=== PATIENT | female | born 1945 | race Caucasian/White ===

== ENCOUNTER → 2017-06-02 | Outpatient (CLI) | payer MEDICARE ==
--- NOTE | 2017-06-02 13:44 | US ---
EXAMINATION TYPE: US venous doppler duplex LE RT DATE OF EXAM: 06/02/2017 1:34 PM COMPARISON: NONE CLINICAL HISTORY: I82.431 EMBOLISM AND THROMBOSIS. SIDE PERFORMED: right TECHNIQUE: The lower extremity deep venous system is examined utilizing real time linear array sonog susan with graded compression, doppler sonography and color-flow sonography. VESSELS IMAGED: External Iliac Vein (EIV) Common Femoral Vein Deep Femoral Vein Greater Saphenous Vein * Femoral Vein Popliteal Vein Small Saphenous Vein * Proximal Calf Veins (* superficial vessels) rt PTV also imaged Right Leg: Negative for DVT IMPRESSION: 1. Right lower extremity negative for deep venous thrombosis.
== END | disposition home or self-care (01) ==
LOC: RADUSWWP 12:53
PROVIDERS: ATTEND Internal Medicine Interventional Cardiology
DX: I82.431 Acute embolism and thrombosis of right popliteal vein (principal)

== ENCOUNTER → 2017-09-09 | Outpatient (CLI) | payer MEDICARE ==
--- NOTE | 2017-09-09 10:30 | US ---
EXAMINATION TYPE: US venous doppler duplex LE RT DATE OF EXAM: 09/09/2017 10:20 AM COMPARISON: US CLINICAL HISTORY: Rt Leg Deep Vein Thrombosis I82.401. SIDE PERFORMED: Right TECHNIQUE: The lower extremity deep venous system is examined utilizing real time linear array sonog susan with graded compression, doppler sonography and color-flow sonography. VESSELS IMAGED: External Iliac Vein (EIV) Common Femoral Vein Deep Femoral Vein Greater Saphenous Vein * Femoral Vein Popliteal Vein Proximal Calf Veins (* superficial vessels) Grayscale, color doppler, spectral doppler imaging performed of the deep veins of the lower extremity . There is normal flow, compressibility, vascular waveforms. IMPRESSION: Right Leg: Negative for DVT
== END | disposition home or self-care (01) ==
LOC: RADUSWWP 09:57
PROVIDERS: ATTEND Internal Medicine Geriatric Medicine
DX: I82.401 Acute embolism and thrombosis of unspecified deep veins of right lower extremity (principal)

== ENCOUNTER → 2019-02-16 | Outpatient (CLI) | payer MEDICARE ==
--- NOTE | 2019-02-19 14:47 | MM ---
Reason for exam: screening (asymptomatic). Last mammogram was performed 2 years and 9 months ago. History: Patient is postmenopausal. Reductions of both breasts, January 07, 2006. Took hormonal contraceptives for 3 years beginning at age 22. Took estrogen for 10 years beginning at age 46. Took progesterone for 10 years beginning at age 46. Physical Findings: A clinical breast exam by your physician is recommended on an annual basis and results should be correlated with mammographic findings. MG 3D Screening Mammo W/Cad Bilateral CC and MLO view(s) were taken. Prior study comparison: May 14, 2016, bilateral MG 3d screening mammo w/cad. July 26, 2014, bilateral MG diagnostic mammo w CAD MADDI. Finding: There are typically benign course calcifications in the right breast. No significant changes in finding since May 14, 2016 and July 26, 2014. ASSESSMENT: Benign, BI-RAD 2 RECOMMENDATION: Routine screening mammogram of both breasts in 1 year.
== END | disposition home or self-care (01) ==
LOC: RADMAMWWP 15:44
PROVIDERS: ATTEND Internal Medicine Geriatric Medicine
DX: Z12.31 Encounter for screening mammogram for malignant neoplasm of breast (principal)
CPT/HCPCS: 77063; 77067

== ENCOUNTER → 2020-02-27 | Outpatient (CLI) | payer MEDICARE ==
--- NOTE | 2020-02-29 10:22 | MM ---
Reason for exam: screening (asymptomatic). Last mammogram was performed 1 year ago. History: Patient is postmenopausal. Reductions of both breasts, January 07, 2006. Took hormonal contraceptives for 3 years beginning at age 22. Took estrogen for 10 years beginning at age 46. Took progesterone for 10 years beginning at age 46. Physical Findings: A clinical breast exam by your physician is recommended on an annual basis and results should be correlated with mammographic findings. MG 3D Screening Mammo W/Cad Bilateral CC, MLO, and XCCL view(s) were taken. Prior study comparison: February 16, 2019, bilateral MG 3d screening mammo w/cad. May 14, 2016, bilateral MG 3d screening mammo w/cad. Finding: There are typically benign coarse calcifications in the right breast. No significant changes in finding since February 16, 2019 and May 14, 2016. ASSESSMENT: Benign, BI-RAD 2 RECOMMENDATION: Routine screening mammogram of both breasts in 1 year.
== END | disposition home or self-care (01) ==
LOC: RADMAMWWP 15:57
PROVIDERS: ATTEND Internal Medicine Geriatric Medicine
DX: Z12.31 Encounter for screening mammogram for malignant neoplasm of breast (principal)
CPT/HCPCS: 77063; 77067

== ENCOUNTER → 2021-05-27 | Outpatient (CLI) | payer MEDICARE ==
--- NOTE | 2021-06-01 12:02 | MM ---
Reason for exam: screening (asymptomatic). Last mammogram was performed 1 year and 3 months ago. History: Patient is postmenopausal. Reductions of both breasts, January 07, 2006. Took hormonal contraceptives for 3 years beginning at age 22. Took estrogen for 10 years beginning at age 46. Took progesterone for 10 years beginning at age 46. Physical Findings: A clinical breast exam by your physician is recommended on an annual basis and results should be correlated with mammographic findings. MG 3D Screening Mammo W/Cad Bilateral CC and MLO view(s) were taken. Prior study comparison: February 27, 2020, bilateral MG 3d screening mammo w/cad. February 16, 2019, bilateral MG 3d screening mammo w/cad. There are scattered fibroglandular densities. There is chronic nodularity in the right breast. Generator device over the left pectoralis. Stable fat necrosis calcifications anterior right breast. No significant changes when compared with prior studies. ASSESSMENT: Benign, BI-RAD 2 RECOMMENDATION: Routine screening mammogram of both breasts in 1 year.
== END | disposition home or self-care (01) ==
LOC: RADMAMWWP 08:06
PROVIDERS: ATTEND Internal Medicine Geriatric Medicine
DX: Z12.31 Encounter for screening mammogram for malignant neoplasm of breast (principal); Z78.0 Asymptomatic menopausal state
CPT/HCPCS: 77063; 77067

== ENCOUNTER → 2022-02-11 | Outpatient (CLI) | payer MEDICARE ==
--- NOTE | 2022-02-11 09:13 | US ---
EXAMINATION TYPE: US abdomen complete DATE OF EXAM: 02/11/2022 COMPARISON: CT abdomen and pelvis November 03, 2014 CLINICAL HISTORY: N20.0 Kidney stone. Right flank pain TECHNIQUE: Multiple sonographic images of the abdomen are obtained. FINDINGS: EXAM MEASUREMENTS: Liver Length: 13.0 cm Gallbladder Wall: Surgically absent CBD: 0.68 cm Spleen: 9.2 cm Right Kidney: 10.0 x 4.2 x 5.7 cm Left Kidney: 10.0 x 4.5 x 5.5 cm Pancreas: wnl Liver: Increased attenuation Gallbladder: Surgically absent Evidence for sonographic Santana's sign: No CBD: wnl Spleen: wnl Right Kidney: wnl Left Kidney: wnl Upper IVC: wnl Abd Aorta: Slight atherosclerotic changes Heterogeneous hyperechoic appearance of liver correlates with fatty infiltrative hepatocellular disea se on 2015 CT. Evaluation for focal masses suboptimal due to the heterogeneity. Gallbladder redemonst rated surgically absent. IMPRESSION: No definitive renal stones or hydronephrosis seen bilaterally. No acute findings are evid ent.
== END | disposition home or self-care (01) ==
LOC: RADUSWWP 08:12
PROVIDERS: ATTEND Internal Medicine Geriatric Medicine
DX: N20.0 Calculus of kidney (principal)
CPT/HCPCS: 76700

== ENCOUNTER 2022-05-10 15:44 | Day surgery (SDC) | payer MEDICARE ==
[2022-05-07 09:22] VITALS: BMI 33.7
[~2022-05-10 15:44] MED LIST: LACTATED RINGERS 1,000 ML IV SCH; SODIUM CHLORIDE 0.9% 1,000 ML IV SCH; ceFAZolin 1 GM in SODIUM CHLORIDE 0.9% IRRIG BTL 250 ML IRRIGATION PRN
[2022-05-10 16:08] LABS: Glucose,Whole Blood 85 mg/dL (70-110)
[2022-05-10] MEDS ORDERED: HYDROmorphone (PF) 1 MG/ML ONE (17:29)
[2022-05-10] MEDS ORDERED: PROPOFOL 10 MG/ML 20 ML VIAL IV ONE (17:29)
[2022-05-10] MEDS ORDERED: MIDAZOLAM 2 MG/2 ML VIAL ONE (17:29)
[2022-05-10] MEDS ORDERED: fentaNYL (PF) 50 MCG/ML 2 ML AMP ONE (17:29)
[2022-05-10] MEDS ORDERED: KETOROLAC 15 MG/ML 1 ML VIAL ONE (17:29)
[2022-05-10] MEDS ORDERED: IOPAMIDOL-370 50ML BTL INJ ONE ×2 (18:03)
[2022-05-10] MEDS ORDERED: LIDOCAINE 1% INJ 10MG/ML (30 ML VIAL-PF) SQ ONE (18:24)
[2022-05-10] MEDS: VANCOMYCIN 1,000 MG in SODIUM CHLORIDE 0.9% 250 ML IVPB STA ×2 (18:30→18:35)
[2022-05-10] MEDS ORDERED: ACETAMINOPHEN TAB 325 MG TAB PO PRN (20:02)
--- NOTE | 2022-05-10 20:27 | P.EPPROC ---
- EP Procedure Note Electrophysiology Procedure Note: Diagnosis Bradycardia, secondary to complete heart block Status post dual-chamber pacemaker which is at [facility] Reduced LV systolic function ejection fraction 45% with RV pacing 1 run of ventricular tachycardia, cycle length of about 430 ms Procedure Upgrade to a biventricular pacemaker/conduction system pacing with left bundle pacing, selective Details Patient was brought to the EP lab in a fasting state. Written informed consent was obtained prior to the procedure. Conscious sedation provided by anesthesia team IV antibiotics including vancomycin administered. Left upper extremity venogram performed. 50 mL IV dye injected Patent left subclavian and axillary venous system Local anesthesia administered. A 4 cm incision made in the pectoral area. Subfascial pocket made. Partial capsulectomy performed. Chronic leads freed from the capsule tissue Venous access obtained at the level of the second rib, axillary vein Venous sheath placed. Leads placed in the right heart Atrial lead position the right atrial appendage. This is a chronic lead [employer] tendril 1688 TC, 46 cm in length and serial number [id number] Pacing threshold 0.75 V at 0.5 ms, P waves 3.6 mV and pacing. 390 ohms RV lead position in the RV apex. This is a chronically positioned in the low RV septum, [employer] tendril SDX, 1688 TC, 58 cm in length and serial number [id number] Pacing threshold 0.5 V at 0.5 ms, complete heart block, pacing impedance 780 ohms Conduction system pacing performed. His bundle and left bundle mapped. Left bundle lead placed and screwed into the left bundle with a [employer] model #[id number] Right bundle branch block pattern with a QRS of less than 140 ms, selective left bundle pacing Excellent thresholds of less than 0.25 V at 1 ms and pacing impedance of about 590 ohms in the unipolar board Even in the bipolar mode right bundle branch block pattern was noted. Leads secured to the muscle and connected to the new generator Biventricular pacemaker device connected to the leads and placed in the subfascial pocket Patient tolerated the procedure well without acute complications Device programmed to DDD mode, AV delay 200 ms 60-130 bpm Left bundle pacing 80 ms before RV pacing
--- NOTE | 2022-05-10 20:59 | XR ---
EXAMINATION TYPE: XR chest 1V portable DATE OF EXAM: 05/10/2022 8:54 PM COMPARISON: Chest radiographs from 11/03/2014 TECHNIQUE: XR chest 1V portable Portable AP radiograph of the chest. CLINICAL INDICATION:Female, 77 years old with history of Lead placement check; FINDINGS: Lungs/Pleura: There is no evidence of pleural effusion, focal consolidation, or pneumothorax. Pulmonary vascularity: Unremarkable. Heart/mediastinum: Cardiomediastinal silhouette is prominent in size. Three lead cardiac conduction d evice overlying the left hemithorax with lead tips projecting over the right ventricle, right atrium and coronary sinus. Musculoskeletal: No acute osseous pathology. IMPRESSION: 1. Cardiac conduction leads appear in appropriate position. 2. No acute cardiopulmonary disease/process.
[2022-05-10] MEDS ORDERED: MONTELUKAST 10 MG TAB PO SCH (21:00)
[2022-05-10] MEDS: METOPROLOL SUCCINATE (ER) 100 MG TAB.ER.24H PO SCH (22:21)
[2022-05-11 03:46] VITALS: PULSE 60; RESP 18
[2022-05-11 05:36] LABS: Basophils % (A) 0 %; Eosinophils # (A) 0.1 k/uL (0-0.7); Eosinophils % (A) 1 %; HCT 33.3 % (34.0-46.0); HGB 11.1 gm/dL (11.4-16.0); Lymphocytes # (A) 2.1 k/uL (1.0-4.8); Lymphocytes % (A) 32 %; MCH 30.1 pg (25.0-35.0); MCHC 33.3 g/dL (31.0-37.0); MCV 90.5 fL (80.0-100.0); Mean Platelet Volume 8.6; Monocytes # (A) 0.4 k/uL (0-1.0); Monocytes % (A) 6 %; Neutrophils % (A) 60 %; Platelet Count 240 k/uL (150-450); RBC 3.68 m/uL (3.80-5.40); RDW 13.6 % (11.5-15.5); WBC 6.7 k/uL (3.8-10.6)
[2022-05-11] MEDS ORDERED: LEVOTHYROXINE 25 MCG TAB PO SCH (06:30)
[2022-05-11 06:41] VITALS: BP 127/67; TEMP 97.8
[2022-05-11] MEDS ORDERED: LOSARTAN 50 MG TAB PO SCH (09:00)
[2022-05-11 09:34] LABS: ALT 17 U/L (8-44); AST 15 U/L (13-35); African American GFR (CKD) 103.3 (60.0-200.0); Albumin 3.7 g/dL (3.8-4.9); Albumin/Globulin Ratio 2.18 (1.60-3.17); Alkaline Phosphatase 49 U/L (41-126); BUN/Creat Ratio 18.67 Ratio (12.00-20.00); Blood Urea Nitrogen 11.2 mg/dL (9.0-27.0); Calcium 8.8 mg/dL (8.7-10.3); Carbon Dioxide 21.7 mmol/L (20.0-27.5); Chloride 104 mmol/L (96-109); Chol/HDL Ratio 5.59 Ratio; Globulin 1.7 g/dL (1.6-3.3); Glucose 128 mg/dL (70-110); LDL Cholesterol,Calculated 138.8 mg/dL (0.0-131.0); Non-African American GFR(CKD) 89.2 (60.0-200.0); Potassium 4.1 mmol/L (3.5-5.5); Sodium 138 mmol/L (135-145); Total Protein 5.4 g/dL (6.2-8.2)
[2022-05-11] MEDS: METOPROLOL SUCCINATE (ER) 100 MG TAB.ER.24H PO SCH (10:41)
--- NOTE | 2022-05-11 17:07 | P.DS ---
Providers Attending physician: Kristian Morfin Primary care physician: [facility] Course: Patient is doing well. She is resting comfortably in bed. No dizziness no lightheadedness upon going to the bathroom Vitals stable blood pressure 144/60 811/61 Pulse rate in the 60s afebrile Breath sounds are clear no rhonchi no crackles Heart sounds S1 and S2 are normal Twelve-lead EKG shows evidence of left bundle pacing, right bundle branch block pattern Pacemaker interrogation is within normal limits excellent thresholds of the left bundle lead of 0.5 V at 0.5 ms Hemoglobin 11.1 Electrolytes normal Renal function normal Liver function normal LDL 139 HDL 35 TSH normal at 0.8 Impression Complete heart block status post dual-chamber pacemaker implantation several years back Device at [facility] Patient has developed cardiomyopathy ejection fraction 40-45%, she is percent of the right ventricle She underwent upgrade to a biventricular pacemaker with left bundle pacing Excellent function of left bundle pacing lead Episode of ventricular tachycardia few days back Elevated LDL with low HDL Normal TSH Normal electrolytes Plan Reduce losartan to 50 mg by mouth daily Increase metoprolol to 100 mg by mouth daily Device instructions explained Follow-up in the device clinic the week Follow with Dr. Reyes regarding management of ventricular tachycardia Consider statins Follow-up in a week in the office Patient Condition at Discharge: Stable Plan - Discharge Summary Discharge Rx Participant: No New Discharge Prescriptions: New Losartan [Cozaar] 50 mg PO DAILY #90 tab Metoprolol Succinate (ER) [Toprol XL] 100 mg PO DAILY #90 tab Discontinued Losartan [Cozaar] 100 mg PO DAILY Metoprolol Tartrate [Lopressor] 25 mg PO BID No Action Montelukast [Singulair] 10 mg PO HS Levothyroxine Sodium [Levoxyl] 0.5 tab PO DAILY Discharge Medication List Montelukast [Singulair] 10 mg PO HS 11/03/14 [History] Levothyroxine Sodium [Levoxyl] 0.5 tab PO DAILY 05/07/22 [History] Losartan [Cozaar] 50 mg PO DAILY #90 tab 05/10/22 [Rx] Metoprolol Succinate (ER) [Toprol XL] 100 mg PO DAILY #90 tab 05/10/22 [Rx] Follow up Appointment(s)/Referral(s): Lina Reyes MD [STAFF PHYSICIAN] - 1 Week (office will call patient with appointment for the device clinic ) Patient Instructions/Handouts: Pacemaker (DC) Activity/Diet/Wound Care/Special Instructions: PATIENT EDUCATION MATERIAL Instructions following a heart rhythm device implant. 1. Keep dressing DRY for 5 DAYS. You may cover the area with Saran or Cling Wrap, prior to a shower. 2. The dressing will be removed in the Device Clinic at [facility]. Absorbable sutures were used to close the wound. 3. Avoid raising the left arm above the shoulder level. 4 week restriction 4. Avoid arm movements, like backscratching, rubbing the head, or pulling on a cord. 4 weeks restriction 5. Gentle range of motion movements of the shoulder, closest to the incision should be performed to avoid a frozen shoulder. (Pendulum exercises of the shoulder) 6. The opposite arm may be used freely. 7. Avoid driving for 7 days. 8. Avoid activities such as golfing, swimming, weed whacking, lifting more than 10 pounds weight, bowling, gymnastics and weight training/lifting. (6 weeks restriction) 9. Activities such as wood chopping with an axe, pull-ups in the gymnasium, power lifting, arc-welding, being close to home induction cooktops will always be a problem. 10. Arm sling is only a reminder not to raise the arm above the head. You do not need to keep the arm completely immobilized. Your free to move the arm and use it and for normal activities. In case of any problems, please call [facility], [facility], @ [phone], Attention: Device Clinic Device clinic follow-up in 5 days Follow-up with primary seat joiner chainstitch in 2-3 months Device clinic follow-up in one week Reduce losartan to 50 mg daily in the evening Discontinue metoprolol tartrate Start metoprolol succinate 100 mg by mouth daily in the morning Discharge Disposition: HOME SELF-CARE
== END 2022-05-11 12:18 | disposition home or self-care (01) ==
LOC: CATHEP 15:44 → 6NMEDSUR 19:45 → CATHEP 05-11 12:18
PROVIDERS: ATTEND Internal Medicine Clinical Cardiac Electrophysiology
DX: I44.2 Atrioventricular block, complete (principal); R00.1 Bradycardia, unspecified; I47.20 Ventricular tachycardia, unspecified; I10 Essential (primary) hypertension; E78.5 Hyperlipidemia, unspecified; G47.33 Obstructive sleep apnea (adult) (pediatric); Z79.899 Other long term (current) drug therapy
CPT/HCPCS: 33225; 33229; 80053; 80061; 84443; 85025; 71045; C1769 ×2; C1887; C1892; C1898; C2621; J2250; J3370; J0690 ×2; J2001; J3010; J1170; J1885; J2704; Q9967

== ENCOUNTER 2024-12-24 10:04 | Emergency (ER) | payer MEDICARE ==
--- NOTE | 2024-12-24 10:35 | ED ---
General Adult HPI - General Chief complaint: Upper Respiratory Infection Stated complaint: Upper respiratory Time Seen by Provider: 12/24/24 10:17 Source: patient, RN notes reviewed Mode of arrival: ambulatory Limitations: no limitations - History of Present Illness Initial comments: This is a 79-year-old female with history of asthma presenting for productive cough with green sputum and SOB x 2 weeks. Patient states symptoms started shortly after possible aspiration of food, stating sensation changes/pain is "mostly in the throat". Endorses going to PCP who prescribed prednisone and doxycycline with minimal relief. Patient states she feels she did not receive the correct antibiotics. Denies fever, chills, dizziness, hemoptysis, reproducible chest pain, abdominal pain, N/V/D. Patient denies history of COPD or smoking history. Onset/Timin -: week(s) Location: neck Associated Symptoms: cough, shortness of breath - Related Data Home Medications Medication Instructions Recorded Confirmed Montelukast [Singulair] 10 mg PO HS 11/03/14 12/24/24 Albuterol Sulfate [Albuterol 2 puff INHALATION RT-Q4H PRN 12/24/24 12/24/24 Sulfate Hfa] Levothyroxine Sodium [Levoxyl] 12.5 mcg PO DAILY 12/24/24 12/24/24 Losartan Potassium [Cozaar] 100 mg PO DAILY 12/24/24 12/24/24 Metoprolol Tartrate [Lopressor] 25 mg PO BID 12/24/24 12/24/24 Previous Rx's Medication Instructions Recorded Amoxic-Pot Clav 875-125Mg 1 tab PO Q12HR #14 tab 12/24/24 [Augmentin 875-125] Azithromycin [Zithromax Z Pack] 1 tab PO DIRECTED #4 tab 12/24/24 Allergies Allergy/AdvReac Type Severity Reaction Status Date / Time No Known Allergies Allergy Verified 12/24/24 11:09 Review of Systems ROS Statement: Those systems with pertinent positive or pertinent negative responses have been documented in the HPI. ROS Other: All systems not noted in ROS Statement are negative. Past Medical History Past Medical History: Asthma, Hypertension, Osteoarthritis (OA) Additional Past Medical History / Comment(s): SEE DR LITTLE'S H&P. pre- diabetic History of Any Multi-Drug Resistant Organisms: None Reported Past Surgical History: Adenoidectomy, Appendectomy, Cholecystectomy, Hysterectomy, Joint Replacement, Pacemaker, Tonsillectomy Additional Past Surgical History / Comment(s): "tummy tuck", eyelid surgery (09/2014), breast augmentation, knee arthroscopy, right total knee replacement Past Anesthesia/Blood Transfusion Reactions: No Reported Reaction Type of Cardiac Device: Unknown Device Placement Date:: UNK Past Psychological History: No Psychological Hx Reported Smoking Status: Never smoker Past Alcohol Use History: Rare Past Drug Use History: None Reported General Exam Limitations: no limitations General appearance: alert, in no apparent distress Head exam: Present: atraumatic, normocephalic, normal inspection Eye exam: Present: normal appearance, PERRL, EOMI. Absent: scleral icterus, conjunctival injection, periorbital swelling ENT exam: Present: normal exam, mucous membranes moist Neck exam: Present: normal inspection. Absent: tenderness, meningismus, lymphadenopathy Respiratory exam: Present: normal lung sounds bilaterally. Absent: respiratory distress, wheezes, rales, rhonchi, stridor, chest wall tenderness, accessory muscle use, decreased breath sounds, prolonged expiratory Cardiovascular Exam: Present: regular rate, normal rhythm, normal heart sounds. Absent: systolic murmur, diastolic murmur, rubs, gallop, clicks GI/Abdominal exam: Present: soft, normal bowel sounds. Absent: distended, t enderness, guarding, rebound, rigid Extremities exam: Present: normal inspection, full ROM, normal capillary refill. Absent: tenderness, pedal edema, joint swelling, calf tenderness Back exam: Present: normal inspection Neurological exam: Present: alert, oriented X3, CN II-XII intact Psychiatric exam: Present: normal affect, normal mood Skin exam: Present: warm, dry, intact, normal color. Absent: rash Course Vital Signs 12/24/24 10:07 Temperature 97.9 F Pulse Rate 67 Respiratory 20 Rate Blood Pressure 182/78 O2 Sat by Pulse 97 Oximetry Medical Decision Making - Medical Decision Making Was pt. sent in by a medical professional or institution (PATRICK Beatty, [employer], urgent care, hospital, or [facility]...) When possible be specific @ -[No] Did you speak to anyone other than the patient for history (EMS, parent, family, police, friend...)? What history was obtained from this source @ -[No] Did you review nursing and triage notes (agree or disagree)? Why? @ -[I reviewed and agree with nursing and triage notes] Were old charts reviewed (outside hosp., previous admission, EMS record, old EKG, old radiological studies, urgent care reports/EKG's, [facility] records)? Report findings @ -[No old charts were reviewed] Differential Diagnosis (chest pain, altered mental status, abdominal pain women, abdominal pain men, vaginal bleeding, weakness, fever, dyspnea, syncope, headache, dizziness, GI bleed, back pain, seizure, CVA, palpatations, mental health, musculoskeletal)? @ -Differential Dyspnea: Coronary syndrome, arrhythmia, tamponade, asthma, COPD, pulmonary embolism, pneumonia, pneumothorax, pulmonary effusion, anaphylaxis, diabetic ketoacidosis, flailed chest, pulmonary contusion, diaphragmatic rupture, anemia, neuromuscular, this is not meant to be an all-inclusive list. EKG interpreted by me (3pts min.). @ -Not done X-rays interpreted by me (1pt min.). @ -CXR shows no acute cardiopulmonary process CT interpreted by me (1pt min.). @ -[None done] U/S interpreted by me (1pt. min.). @ -[None done] What testing was considered but not performed or refused? (CT, X-rays, U/S, labs)? Why? @ -[None] What meds were considered but not given or refused? Why? @ -[None] Did you discuss the management of the patient with other professionals (professionals i.e. , PA, [employer], lab, RT, psych nurse, director of social services, mechanical assembly, teacher, diplomatic officer, case management assistant)? Give summary @ -[No] Was smoking cessation discussed for >3mins.? @ -[No] Was critical care preformed (if so, how long)? @ -[No] Were there social determinants of health that impacted care today? How? (Homelessness, low income, unemployed, alcoholism, drug addiction, transportation, low edu. Level, literacy, decrease access to med. care, fpc, rehab)? @ -[No] Was there de-escalation of care discussed even if they declined (Discuss DNR or withdrawal of care, Hospice)? DNR status @ -[No] What co-morbidities impacted this encounter? (DM, HTN, Smoking, COPD, CAD, Cancer, CVA, ARF, Chemo, Hep., AIDS, mental health diagnosis, sleep apnea, morbid obesity)? @ -[None] Was patient admitted / discharged? Hospital course, mention meds given and route, prescriptions, significant lab abnormalities, going to OR and other pertinent info. @ -[hospital course] Undiagnosed new problem with uncertain prognosis? @ -[No] Drug Therapy requiring intensive monitoring for toxicity (Heparin, Nitro, Insulin, Cardizem)? @ -[No] Were any procedures done? @ -[No] Diagnosis/symptom? @ -[default] Acute, or Chronic, or Acute on Chronic? @ -Acute Uncomplicated (without systemic symptoms) or Complicated (systemic symptoms)? @ -Uncomplicated Side effects of treatment? @ -[No] Exacerbation, Progression, or Severe Exacerbation? @ -[No] Poses a threat to life or bodily function? How? (Chest pain, [place], [place], pneumonia, PE, COPD, DKA, ARF, appy, cholecystitis, CVA, Diverticulitis, Homicidal, Suicidal, threat to staff... and all critical care pts) @ -[No] - Lab Data Lab Results 12/24/24 Range/Units 11:00 Influenza Type A (PCR) Not Detected (Not Detectd) Influenza Type B (PCR) Not Detected (Not Detectd) RSV (PCR) Not Detected (Not Detectd) SARS-CoV-2 (PCR) Not Detected (Not Detectd) Disposition Clinical Impression: Tracheobronchitis Disposition: HOME SELF-CARE Condition: Good Instructions (If sedation given, give patient instructions): Acute Bronchitis (ED) Additional Instructions: Continue Mucinex/guaifenesin use as directed, as needed. Honey, warm fluids, humidifier for cough. Follow-up with PCP regarding any ongoing symptoms. Prescriptions: Amoxic-Pot Clav 875-125Mg [Augmentin 875-125] 1 tab PO Q12HR #14 tab Azithromycin [Zithromax Z Pack] 1 tab PO DIRECTED #4 tab Is patient prescribed a controlled substance at d/c from ED?: No Referrals: Bogdan Ruvalcaba MD [Primary Care Provider] - 1-2 days Time of Disposition: 11:42
--- NOTE | 2024-12-24 11:11 | XR ---
EXAMINATION TYPE: XR chest 2V DATE OF EXAM: 12/24/2024 11:05 AM COMPARISON: Chest radiographs from 10/04/2022 TECHNIQUE: XR chest 2V Frontal and lateral views of the chest. CLINICAL INDICATION:Female, 79 years old with history of Productive cough, SOB; FINDINGS: Lungs/Pleura: There is no evidence of pleural effusion, focal consolidation, or pneumothorax. Pulmonary vascularity: Unremarkable. Heart/mediastinum: Cardiomediastinal silhouette is prominent in size. Two lead cardiac conduction dev ice overlying the left hemithorax with lead tips projecting over the right ventricle and right atrium . Musculoskeletal: Multiple level degenerative disc disease changes seen throughout the spine. Other: Cholecystectomy clips in the right upper quadrant. IMPRESSION: No acute cardiopulmonary disease/process. [facility], , 12/24/2024 11:08 AM
[2024-12-24 11:40] LABS: RSV Not Detected (Not Detectd)
[2024-12-24] MEDS: AMOXIC-POT CLAV 875-125MG 1 EACH TAB PO STA (12:05)
[2024-12-24] MEDS: AZITHROMYCIN 500 MG TAB PO STA (12:05)
[2024-12-24 12:11] VITALS: BP 139/70; PULSE 60; RESP 18; TEMP 98.1
== END 2024-12-24 12:11 | disposition home or self-care (01) ==
LOC: EC 10:04
DX: J40 Bronchitis, not specified as acute or chronic (principal)
CPT/HCPCS: 71046; 87636; 99283